=== PATIENT | male | born 1955 | race Caucasian/White ===

== ENCOUNTER 2024-06-25 12:47 | Outpatient (CLI) | payer MEDICARE, SELFPAY ==
--- NOTE | ~2024-06-25 | PE_ITS ---
EXAMINATION: PET_PETPSMAST_PT DATE: 06/25/2024 15:31 INDICATION: Prostate cancer TECHNIQUE: 5.033 mCi of Illucix Ga-[id number]) was administered i.v. Low dose computed vincent graphy (CT) images were acquired from the base of the brain to the base of the brain to the proximal thighs for attenuation correction and anatomic localization. Positron emission tomography (PET) image s were acquired in the same distribution beginning 73 minutes after injection. Images including fused PET/CT images were reconstructed in axial, coronal, and sagittal planes. Automated exposure control technique was employed. The dose-length product was 845.10mGy-cm. COMPARISON: None FINDINGS: Head/neck: Typical pattern of symmetric physiologic increased activity in the lacrimal, parotid and submandibula r glands as well as along the mucosa of the nasal and oral cavities, pharynx and hypopharynx. No path ologically enlarged cervical lymphadenopathy or suspicious foci of increased uptake in the visualized head or neck. Chest: Groundglass opacity consistent with mild dependent atelectasis in the right lower lobe. More linear o pacities with associated cavitary lung disease in the dependent left lower lobe which could represent atelectasis with emphysema and/or usual interstitial pneumonia (UIP) pattern chronic interstitial girma ng disease with associated honeycombing. No suspicious pulmonary nodules or pleural effusion. Heart s ize normal. Atherosclerotic coronary artery calcification is. No pericardial effusion. Thoracic aorta is normal in caliber. No pathologically enlarged or PSMA avid thoracic lymphadenopathy. Abdomen/pelvis/proximal thighs: Physiologic renal accumulation and excretion of activity in the kidneys, bladder and along portions o f ureters. Prostatomegaly measuring 4.7 x 4.2 cm. Nodular region of intense activity at the right pos terior aspect of the prostate with maximal SUV of 21.7 consistent with primary prostate cancer. Genesis l degree and slightly heterogenous pattern of increased uptake throughout the liver and spleen withou t radiologic correlate or dominant PSMA avid lesion. The gallbladder, pancreas and bilateral adrenal glands are normal. Moderate uptake scattered throughout the bowels with typical duodenal and proximal jejunal predominance and without radiologic correlate, also likely physiologic. No other abnormal fo ci of increased uptake or pathologically enlarged lymphadenopathy in the abdomen, pelvis or proximal thighs. Ectatic infrarenal abdominal aorta measuring up to 3.1 cm maximal diameter. Infrarenal IVC fi lter. Musculoskeletal: Moderate to severe thoracolumbar spondylosis. No suspicious lytic, blastic or PSMA avid lesions. IMPRESSION: 1. Nodular focus of prominent increased PSMA neck activity at the right posterior aspect of the enlar ged prostate consistent with primary prostate cancer. No evident metastatic disease. Reviewed, dictated and finalized at location A. IMPRESSION: 1. Nodular focus of prominent increased PSMA neck activity at the right posteri or aspect of the enlarged prostate consistent with primary prostate cancer. No evident metastatic disease.
--- OUTSIDE RECORDS SUMMARY | 2024-06-25 13:11 | XMS_ITS | Referral Summary ---
Author Organization [facility] [address] Address [address] [place] [address] Phone Care Team Providers Care Epic Ambulatory Specialists Name Role Phone Michelle Bonds MD Primary Care Provider [phone] Fer Ovalle Unavailable Unavail able Phillip Lima MD Unavailable [phone] Fer Hawk OD Unavailable [phone] Justin Brennan MD Unavailable [phone] Allergies No known active allergies Medications cholecalciferol (VITAMIN D-3) 1,000 unit tablet take 1 by Oral route every day 90 3 2 Active aspirin 81 mg chewable tabletIndications: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 (HCC) Take 1 tablet (81 mg total) by mouth daily 90 tablet 3 2 Active atorvastatin (LIPITOR) 80 mg tabletIndications:M ultiple-type hyperlipidemia TAKE ONE TABLET BY MOUTH DAILY 90 tablet 2 Active lisinopriL (PRINIVIL,ZESTRIL) 20 mg tabletIndications:B enign hypertension TAKE ONE TABLET BY MOUTH EACH DAY 90 tablet 2 Active Active Problems Problem Noted Date Diagnosed Date 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 Recheck [address] lung cancer screening [facility] On 05/08/2021 CT stable, recheck 1 year Fatigue 10/05/2020 Seborrhea 05/03/2020 Tobacco use 09/12/2016 Benign hypertension 05/11/2015 Overview (07/13/2016): Hypertension, benign Multiple-type hyperlipidemia 05/11/2015 Overview (07/13/2016): Mixed hyperlipidemia Resolved Problems Problem Noted Date Diagnosed Date Resolved Date Obesity (BMI 30-39.9) 03/17/20172017 Prediabetes 09/12/2016 09/23/2017 History of deep venous thrombosis 05/11/2015 03/17/2017 Overview (07/13/2016): History of DVT (deep vein thrombosis) Adiposity 05/11/2015 09/12/2016 Overview (07/13/2016): Obesity (BMI 30.0-34.9) Crohn's disease of colon 08/22/201301/2017 Overview (07/12/2016): Crohn's colitis Male erectile disorder 08/22/201309/12 Overview (07/12/2016): ED (erectile dysfunction) Urethral stricture 08/22/2013 7 Overview (07/12/2016): Urethral stricture, other cause Diabetes mellitus 08/22/2013 09/12/2016 Overview (07/13/2016): Diabetes History of pulmonary embolism 08/22/2013 03/17/2017 Overview (07/13/2016): History of pulmonary embolism Immunizations Immunization Administration Dates Next Due Flucelvax Influenza Quad 01/20/2019 Influenza, Quadrivalent, Spl it, Intramuscular 02/21/2021,01/22/2018 Influenza, Quadrivalent, Spl it, Preservative Free, Intramuscular 01/21/2018,01/11/2017 Influenza, Unspecified 12/31/2019 Moderna SARS-CoV-2 Monovalen t Vaccination (12+ YRS) 04/21/2021,06/17/2020,05/09/2020 Pneumococcal Conjugate PCV 13 10/21/2014 Tdap 05/09/2021,02/05/2012 ZOSTER LIVE 10/27/2014 Social History Tobacco Use Types Packs/Day Years Used Date Smoking Tobacco: Every Day Cigarettes 0.5 30 Smokeless Tobacco: Never Tobacco Cessation:Ready to Q uit: No Alcohol Use Standard Drinks/Week Comments Yes 4 (1 standard drink = 0.6 oz pur e alcohol) Everyday PHQ-2 Answer Date Recorded PHQ-2 Total Score (If total score is 3 or more points, staff should administer the PHQ-9) 0 05/09/2021 Sex and Gender Information Value Date Recorded Sex Assigned at Not on file Legal Sex Male 1:08 PM OPERATIONAL RISK ANALYST Gender Identity Not on file Sexual Orientation Not on file 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 Not on file 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 [employer] Not on file Not on file Not on conner e Last Filed Vital Signs Vital Sign Reading Time Taken Comments Blood Pressure 140/66 05/09/2021 8:43 AM OPERATIONAL RISK ANALYST Pulse 88 05/09/2021 8:43 AM OPERATIONAL RISK ANALYST Temperature 36.9 C (98.4 F) 05/09/2021 8:43 AM OPERATIONAL RISK ANALYST Respiratory Rate 12 05/09/2021 8:43 AM OPERATIONAL RISK ANALYST Oxygen Saturation 97% 05/09/2021 8:43 AM OPERATIONAL RISK ANALYST Inhaled Oxygen Concentration - - Weight 72.6 kg (160 lb) 05/09/2021 8:43 AM OPERATIONAL RISK ANALYST Height 175.3 cm (5' 9 ) 05/09/2021 8:43 AM OPERATIONAL RISK ANALYST Body Mass Index 23.63 05/09/2021 8:43 AM OPERATIONAL RISK ANALYST Plan of Treatment Not on file Procedures Procedure Name Priority Date/Time Associated Diagnosis Comments PSA SCREEN Routine 04/04/2018 7:35 AM OPERATIONAL RISK ANALYST Annual physical exam HEPATITIS C ANTIBODY Routine 02/26/2017 7:43 AM OPERATIONAL RISK ANALYST Encounter for general adult medical examination without abnormal findings COLONOSCOPY 11/23/2014 12:00 AM CDT from Last 3 Months or Most Recently Relevant to Health Maintenance Results * PSA screen (04/04/2018 7:35 AM OPERATIONAL RISK ANALYST) PSA 3.3 < OR = 4.0 ng/mL [facility] [place] Comment: The total PSA value from this assay system is standardized against the WHO standard. The test result will be approximately 20% lower when compared to the equimolar-standardized total PSA ([place]). Comparison of serial PSA results should be interpreted with this fact in mind. This test was performed using the Siemens chemiluminescent method. Values obtained from different assay methods cannot be used interchangeably. PSA levels, regardless of value, should not be interpreted as absolute evidence of the presence or absence of disease. Blood specimen (specimen) 04/04/2018 7:35 AM OPERATIONAL RISK ANALYST 04/04/2018 7:35 AM OPERATIONAL RISK ANALYST Narrative Resulting Agency Comment Performing Organization Information: Site ID: [id number] Name: [facility] Address: [address] [place] [address] Director: Honorio Cardona D.O., MPH Michelle Bonds MD LAB BLOOD ORDERABLES Final Result [facility] [place] * Hepatitis C antibody (02/26/2017 7:43 AM OPERATIONAL RISK ANALYST) Hep C Ab NON-REACTI VE NON-REACTI VE [facility] [place] SIGNAL TO CUT-OFF 0.01 <1.00 [facility] [place] Blood specimen (specimen) 02/26/2017 7:43 AM OPERATIONAL RISK ANALYST 02/26/2017 7:44 AM OPERATIONAL RISK ANALYST Narrative [facility] - 02/27/2017 9:31 AM OPERATIONAL RISK ANALYST FASTING:YES FASTING: YES Resulting Agency Comment Performing Organization Information: Site ID: [id number] Name: [facility] Address: [address] [place] [address] Director: Honorio Cardona D.O., MPH us Michelle Bonds MD LAB MICROBIOLOGY - GENERAL ORDERABLES Final Result [facility] [place] * COLONOSCOPY (11/23/2014 12:00 AM CDT) Anatomical Region Laterality Modality Other Narrative 11/23/2014 12:00 AM CDT Ordered by an unspecified provider. Procedure Note Provider, MD Tre - 11/23/2014 12:00 AM CDT PROCEDURE REPORT Patient: GIOVANA ALCALA Account: [id number] Room No: : 1955 Patient Type: SDS Attend.: eFr Ovalle M.D. Admit Date: 11/23/2014 Dict.: Fer Ovalle M.D. Disch. Date: 11/23/2014 NAME OF PROCEDURE: COLONOSCOPY DATE OF PROCEDURE: 11/23/2014 REFERRED BY: Michelle Bonds M.D. PREVIOUS PROCEDURE: Colonoscopy with evidence of Crohn's colitis. X-RAYS: None. HISTORY AND PHYSICAL EXAM: The patient is a 59-year-old white male whoreturns now for screening colonoscopy. He notes no specific complaints. He hasno abdominal pain and no diarrhea. Physical exam today is that of a well-developed, well-nourished white male in no acute distress. He is anicteric. His lungs are clear. His heart is regular. Abdomen is softand supple without point tenderness or peritoneal signs. There are noobstructive sounds and no succussion splash. PRE-PROCEDURE DIAGNOSIS: 1. Screening colonoscopy in a 59-year-old male. 2. History of Crohn's colitis diagnosed in the past. ENDOSCOPIST: Fer Ovalle M.D. INSTRUMENT USED: ElectraTherm video endoscope. MEDICATIONS: Per Anesthesia. FINDINGS: The colonoscope was introduced and passed to the cecum. Thepatient tolerated the procedure well. There were no complications. On withdrawalof the colonoscope the mucosa appeared normal with normal vascular pattern. Therewere no colitis changes noted in the cecum or right colon. The ileocecal valvewas identified but not entered on this occasion. The remainder of the cecum,right, transverse, and left colon was normal. The rectosigmoid was normal. Onceagain there was no evidence of active colitis. The remainder of the left, rectosigmoid, and rectum was normal. Retroflexed view of the internal analarea showed moderate internal hemorrhoidal tissue. Perianal exam showed noperianal disease and no rectal masses. COMPLICATIONS: None. POST-PROCEDURE DIAGNOSIS: 1. Normal screening colonoscopy to the cecum, with a withdrawal time of7 minutes and 9 seconds. Preparation was excellent. 2. History of Crohn's colitis without evidence of any active colitis or mucosal changes. 3. Occasional bright red blood per rectum contributing to hemorrhoids inthe past and consistent with the same. POST-PROCEDURE ORDERS: 1. Post-sedation instructions. 2. High-fiber diet. 3. Small bowel series. 4. CBC, differential, sedimentation rate, and liver profile. 5. Follow-up with Dr. Bonds. 6. Return to see me in six months at which time we will follow up forhis history and consider further workup, therapy, or changes as may beneeded. Fer Ovalle M.D. RICHI/ms TD: 11/24/2014 14:46 CC: Michelle Bonds M.D. Electronically Authenticated by: Fer Ovalle MD On 11/30/2014 10:48 AM CDT us Historical Provider ENDOSCOPY PROCEDURES Meryl l Result from Last 3 Months or Most Recently Relevant to Health Maintenance Insurance CHOICE [place]PO [place] [facility] Advance Directives For more information, please contact: [phone] Documents on File Type Date Recorded Patient Voicer Expl anation ADVANCE DIRECTIVE 05/03/2020 POWER OF A TTORNEY-MEDICAL Care Teams Epic Ambulatory Specialists Relationship Specialty Start Date End Date Michelle Bonds MD PCP - General 07/12/16 Fer Ovalle Gastroenterology 03/18/17 Phillip Lima MD Referring Physician Ophthalmology 09/23/17 Fer Hawk OD Optometry 09/23/17 Justin Brennan MD [address] [place] [address] [address] [place] [address] Referring Physician Urology 03/26/24
--- OUTSIDE RECORDS SUMMARY | 2024-06-25 13:11 | XMS_ITS | Clinical Summary ---
Author Organization [facility] [address] Address [address] [place] [address] Phone Care Team Providers Care Circulator Name Role Phone Michelle Bonds MD Primary Care Provider [phone] Fer Ovalle Unavailable Unavail able Phillip Lima MD Unavailable [phone] Fer Hawk OD Unavailable [phone] Justin Brennan MD Unavailable [phone] Allergies No known active allergies Medications cholecalciferol [...] disease confirmed on CT lung cancer screening [facility] December 2020 Alcohol use 11/16/2020 Nodule of upper lobe of right lung 11/16/2020 Overview (05/19/2021): 7 mm right upper lobe lobulated lung nodule on screening lung cancer chest CT November 16, 2020. Recheck [address] lung cancer screening [facility] On 05/08/2021 CT stable, recheck 1 year [...] 13 10/21/2014 Tdap 05/09/2021,02/05/2012 ZOSTER LIVE 10/27/2014 Surgical History Surgery Date Site/Laterality Comments OTHER SURGICAL HISTORY repair LLE OTHER SURGICAL HISTORY venacava filter placement OTHER SURGICAL HISTORY reattachment nerve right first finger CATARACT EXTRACTION 04/08/2009 - 04/07/2010 Cataract extraction SHOULDER SURGERY Right COLONOSCOPY 11/06/2014 - 12/06/2014 Dr. Ovalle (-) Medical History Medical History Date Comments Crohn's disease of colon (HCC) 08/22/2013 C rohn's colitis History of pulmonary embolism 08/22/2013 Hi story of pulmonary embolism Tobacco use 09/12/2016 Depression Diabetes (HCC) BPH (benign prostatic hyperplasia) mild (urethral stricture) Tears of meniscus and ACL of left knee ED (erectile dysfunction) Family History Medical History Relation Name Comments Stroke Mother Stroke; Relation Name Status Comments Mother Social History Tobacco Use Types Packs/Day Years [...] on file Legal Sex Male 1:08 PM ASSEMBLER MOLDED FRAMES Gender Identity Not on file Sexual Orientation Not on file 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 Not on file 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 [employer] Not on file Not on file Not on conner e Obstetrics History Last Filed Vital Signs Vital Sign Reading Time Taken Comments Blood Pressure 140/66 05/09/2021 8:43 AM ASSEMBLER MOLDED FRAMES Pulse 88 05/09/2021 8:43 AM ASSEMBLER MOLDED FRAMES Temperature 36.9 C (98.4 F) 05/09/2021 8:43 AM ASSEMBLER MOLDED FRAMES Respiratory Rate 12 05/09/2021 8:43 AM ASSEMBLER MOLDED FRAMES Oxygen Saturation 97% 05/09/2021 8:43 AM ASSEMBLER MOLDED FRAMES Inhaled Oxygen Concentration - - Weight 72.6 kg (160 lb) 05/09/2021 8:43 AM ASSEMBLER MOLDED FRAMES Height 175.3 cm (5' 9 ) 05/09/2021 8:43 AM ASSEMBLER MOLDED FRAMES Body Mass Index 23.63 05/09/2021 8:43 AM ASSEMBLER MOLDED FRAMES Plan of Treatment Health Maintenance Due Date Last Done Comments Fall Risk Assessment 1955 Hepatitis B Screening 1974 Pneumococcal vaccine 65+ (2 of 2 - PPSV23) 12/16/2014 10/21/2014 Zoster Vaccine (2 of 3) 12/22/2014 10/27/2014 Prostate Cancer Screening-PSA 04/04/2020 04/04/2018, 07/24/2016 Abdominal Aortic Aneurysm (A AA) Screen 2021 Depression Screening 05/09/2022 05/09/2021, 10/20/19 20 Well Visit 65+ 05/09/2022 05/09/2021, 04/09, 10/01/2018, Additional history exists Covid-19 Vaccine (4 2023-2 5 season) 2023 04/21/2021, 06/17/2020, 05/09/2020 Influenza Vaccine (#1) 2023 , 12/31/2019, 01/20/2019, Additional history exists Colon Cancer Screening-Colonoscopy 11/23/2024 11/23/2014 DTaP/Tdap/Td Vaccine (3 - Td or Tdap) 05/09/2031 05/09/2021, 02/05/2012 Colon Cancer Screening-CT Colonography Discontinued 11/23/2014 Colon Cancer Screening-DNA Stool Discontinued 11/24/19 15 Colon Cancer Screening-FIT Discontinued 11/23/2014 Colon Cancer Screening-Sigmoidoscopy Discontinued 11/23/2014 Hepatitis C Screening Completed 02/26/2017 Procedures Procedure Name Priority Date/Time Associated Diagnosis Comments PSA SCREEN Routine 04/04/2018 7:35 AM ASSEMBLER MOLDED FRAMES Annual physical exam HEPATITIS C ANTIBODY Routine 02/26/2017 7:43 AM ASSEMBLER MOLDED FRAMES Encounter for general adult medical examination without abnormal findings COLONOSCOPY 11/23/2014 12:00 AM CDT from Last 3 Months or Most Recently Relevant to Health Maintenance Results * PSA screen (04/04/2018 7:35 AM ASSEMBLER MOLDED FRAMES) PSA 3.3 < OR = 4.0 ng/mL [facility] [place] Comment: The total PSA value from this assay system is standardized against the WHO standard. The test result will be approximately 20% lower when compared to the equimolar-standardized total PSA (Glenn [place]). Comparison of serial PSA results should be interpreted with this fact in mind. This test was performed using the Siemens chemiluminescent method. Values obtained from different assay methods cannot be used interchangeably. PSA levels, regardless of value, should not be interpreted as absolute evidence of the presence or absence of disease. Blood specimen (specimen) 04/04/2018 7:35 AM ASSEMBLER MOLDED FRAMES 04/04/2018 7:35 AM ASSEMBLER MOLDED FRAMES Narrative Resulting Agency Comment Performing Organization Information: Site ID: [id number] Name: [facility] Address: [address] [place] [address] Director: Honorio Cardona D.O., MPH Michelle Bonds MD LAB BLOOD ORDERABLES Final Result [facility] [place] * Hepatitis C antibody (02/26/2017 7:43 AM ASSEMBLER MOLDED FRAMES) Hep C Ab NON-REACTI VE NON-REACTI VE [facility] [place] SIGNAL TO CUT-OFF 0.01 <1.00 [facility] [place] Blood specimen (specimen) 02/26/2017 7:43 AM ASSEMBLER MOLDED FRAMES 02/26/2017 7:44 AM ASSEMBLER MOLDED FRAMES Narrative [facility] - 02/27/2017 9:31 AM ASSEMBLER MOLDED FRAMES FASTING:YES FASTING: YES Resulting Agency Comment Performing Organization Information: Site ID: [id number] Name: [facility] Address: [address] [place] [address] Director: Honorio Cardona D.O., MPH us Michelle Bonds MD LAB MICROBIOLOGY - GENERAL ORDERABLES Final Result [facility] [place] * COLONOSCOPY (11/23/2014 12:00 AM CDT) Anatomical Region Laterality Modality Other Narrative 11/23/2014 12:00 AM CDT Ordered by an unspecified provider. Procedure Note Provider, MD Tre - 11/23/2014 12:00 AM CDT PROCEDURE REPORT Patient: GIOVANA ALCALA Account: [id number] Room No: : 1955 Patient Type: SDS Attend.: Fer Ovalle M.D. Admit Date: 11/23/2014 Dict.: Fer [...] past. ENDOSCOPIST: Fer Ovalle M.D. INSTRUMENT USED: Overtone video endoscope. MEDICATIONS: Per Anesthesia. FINDINGS: The [...] Health Maintenance Insurance [place] [facility] Advance Directives For more information, please contact: [phone] Documents on File Type Date Recorded Patient Adolescent Psychiatrist Expl anation ADVANCE DIRECTIVE 05/03/2020 POWER OF A TTORNEY-MEDICAL Care Teams Circulator Relationship Specialty Start Date End Date Michelle Bonds MD PCP - General 07/12/16 Fer Ovalle Gastroenterology 03/18/17 Phillip Lima MD Referring Physician Ophthalmology 09/23/17 Fer Hawk OD Optometry 09/23/17 Justin Brennan MD [address] [place] [address] [address] [place] [address] Referring Physician Urology 03/26/24
--- OUTSIDE RECORDS SUMMARY | 2024-06-25 13:11 | XMS_ITS | Encounter Summary ---
Author Organization [facility] Address [address] [place] [address] Phone Care Team Providers Care Pens And Pencils Dipper Name Role Phone Michelle Bonds MD Primary Care Provider [phone] Fer Ovalle Unavailable Unavail able Phillip Lima MD Unavailable [phone] Fer Hawk OD Unavailable [phone] Justin Brennan MD Unavailable [phone] Encounter Details Date Type Department Care Team (Late st Contact Info) Description 09/25/2016 Orders Only [facility] [address] [place] [address] Penny Cuellar, MEDICAL EXAMINER [address] [facility] [address] [address] Social History Tobacco Use Types Packs/Day Years Used Date Smoking Tobacco: Every Day Cigarettes 0.5 20 Alcohol Use Standard Drinks/Week Comments Yes 4 (1 standard drink = 0.6 oz pur e alcohol) Everyday Sex and Gender Information Value Date Recorded Sex Assigned at Not on file Legal Sex Male 1:08 PM 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 Gender Identity Not on file Sexual Orientation Not on file documented as of this encounter Ordered Prescriptions Prescription Sig Dispense Quantity Refills Last Filled Start Date End Date atorvastatin (LIPITOR) 80 mg tablet Take 1/2 tab once a day 30 tablet 2 09/25/2016 2016 documented in this encounter Plan of Treatment Not on file documented as of this encounter Visit Diagnoses Not on filedocumented in this encounter Discontinued Medications Medication Sig Discontinue Reason Start Date End Da te atorvastatin (LIPITOR) 80 mg tablet TAKE 1/2 TABLET (40MG) BY MOUTH IN THE EVENING Reorder 09/21/2016 09/25/2016 documented as of this encounter Care Teams Pens And Pencils Dipper Relationship Specialty Start Date End Date Michelle Bonds MD PCP - General 07/12/16 Fer Ovalle Gastroenterology 03/18/17 Phillip Lima MD Referring Physician Ophthalmology 09/23/17 Fer Hawk, CARLIN Optometry 09/23/17 Justin Brennan MD [address] [facility] [address] [place] [address] Referring Physician Urology 03/26/24 documented as of this encounter
--- OUTSIDE RECORDS SUMMARY | 2024-06-25 13:11 | XMS_ITS | Clinical Summary ---
Author Organization [facility] Address [address] [place] [address] Phone Care Team Providers Care Sales Support Consultant Name Role Phone Unavailable Unavailable Unavailable Reason for Visit and Chief Complaint STRESS TEST Plan of Treatment No Plan of Treatment Recorded Assessments Includes: Assessments from this encounter No Assessments Recorded Medical Equipment - Implanted Devices Includes: Current Devices No Medical Equipment Recorded Medications Administered Includes: Administered Medications from this encounter No Administered Medications Recorded Results Includes: Results discussed during this encounter No Results Recorded For Specified Dates History of Present Illness Includes: History of Present Illness from this encounter No History of Present Illness Recorded Social History No Social History Recorded - Smoking Status Unknown Medical History Includes: Medical History addressed during this encounter No Medical History Recorded Family History Includes: Family History addressed during this encounter No Family History Recorded Review of Systems Includes: Review of Systems from this encounter No Review of Systems Recorded Mental Status Includes: Mental Status from this encounter No Mental Status Recorded Functional Status Includes: Functional Status from this encounter No Functional Status Recorded Physical Exam Includes: Physical Exam from this encounter No Physical Exam Recorded Encounters Encounter Provider Location Date Check-In Time Check- Out Time Diagnosis STRESS TEST ZAYDA DE LA CRUZ MD [facility] 1 12:11PM 1:20PM Clinical Notes Includes: Clinical Notes from this encounter No Clinical Notes Recorded
--- OUTSIDE RECORDS SUMMARY | 2024-06-25 13:11 | XMS_ITS | Continuity of Care Document ---
Author Organization [facility] Address [id number] [place] [address] [place] [address] Phone Care Team Providers Care Live Source Operator Name Role Phone Phillip Lima MD Unavailable Unavailable Allergies, Adverse Reactions, Alerts Substance Reaction Status Criticality No Known Allergies Active No Inform ation Medications Medication Instructions Dosage Effective Dates (start - stop) Status Comments Lipitor 40 mg tablet take 1 tablet (40MG ) by oral route every day 40 MG - Active Procedures Procedure Date Eye Exam & Treatment Post-op Follow-up Visit Office/outpatient Visit, Est After Cataract Laser Surgery No Charge Cataract Check No Charge Refraction Post-op Follow-up Visit After Cataract Laser Surgery Post-op Follow-up Visit Post-op Follow-up Visit Remove Cataract, Insert Lens Echo Exam Of Eye-Professional Oct-19-201 1 Office/outpatient Visit, Est Post-op Follow-up Visit Post-op Follow-up Visit Post-op Follow-up Visit Remove Cataract, Insert Lens Office/outpatient Visit, Est Echo Exam Of Eye Fundus Photography W/ Report Jan- Eye Exam, New Patient Advance Directives Directive Yes / No Effective Date File Name No Information Encounters Encounter Description Practice Location Reason(s) For Visit Diagnoses Date Provider Providers Copied on Encounter [facility], [address], [place], [place], [address], [place] tel:[phone] [place] Profession[place] Blurry vision (chief complaint) Pseudophakia of both eyesBorderli ne diabetes Apr- 7-201 6 Wankum Phillip. [address] [facility], [address], [place], [place], [address], [place]. tel:[phone] Referring Provider: Michelle Bonds MD, [address] [place], [address]. tel:[phone] [facility], [address], [place], [place], [address], [place] tel:[phone] [place] dryness (chief complaint) FOLLOW-UP SURGERY NOSHORDEOLUM INTERNUM 0-201 4 [facility]. [address] [facility], [address], [place], [place], [address], [place]. tel:[phone] Referring Provider: Michelle Bonds MD, [address] [place], [address]. tel:[phone] Office/outpa tient Visit, Est [facility], [address], [place], [place], [address], [place] tel:[phone] [place] a comprehensiv e exam (chief complaint) AFTR-CATAR OBSCUR VISION Apr-1 0-201 4 [place] Phillip. [address] [facility], [place], [place], [address], [place]. tel:[phone] Referring Provider: Michelle Bonds MD, [address] [place], [address]. tel:[phone] [facility], [address], [place], [place], [address], [place] tel:[phone] [place] glare (chief complaint) AFTR-CATAR OBSCUR VISIONDiabet es Mellitus Type 2, Uncomplicate d 4 [place] Phillip. [address] [facility], [facility] [address], [place], [place], [address], [place]. tel:[phone] Referring Provider: Michelle Bonds MD, [address] [place], [address]. tel:[phone] [facility] [place], [facility], [address], [place], [place], [address], [place] tel:[phone] [place] Professiona l No Information 2 [facility] Fisher. [address] [facility], [facility] [address], [place], [place], [address], [place]. tel:[phone] Referring Provider: Michelle Bonds MD, [address] [place], [address]. tel:[phone] [facility], [address], [place], [place], [address], [place] tel:[phone] SEC [place] Professiona l No Information 2 [facility] Fisher. [address] [facility], [facility] [place] [place], [address], [place]. tel:[phone] Referring Provider: Michelle Bonds MD, [address] [place], [address]. tel:[phone] [facility], [address], [place], [place], [address], [place] tel:[phone] [place] Professiona l blurry vision (chief complaint) FOLLOW-UP SURGERY NOSAFTR-JULIA R OBSCUR VISION 1 No Information Referring Provider: Michelle Bonds MD, [address] [place], [address]. tel:[phone] [facility], [address], [place], [place], [address], [place] tel:[phone] [place] Profession[place] a comprehensiv e exam (chief complaint) FOLLOW-UP SURGERY NOS Jan- 1 No Information Referring Provider: Michelle Bonds MD, [address] [place], [address]. tel:[phone] [facility], [address] [place] [address] [address], [place], [place], [address], [place] tel:[phone] [facility] No Information Jan- 1 Cristian Brown. [address] [place] [address], [address], [place], [place], [address], [place]. tel:[phone] Referring Provider: Michelle Bonds MD, [address] [place], [address]. tel:[phone] [facility], [address] [place] [address] [address], [place], [place], [address], [place] tel:[phone] SEC Caroline Eddy No Information 1 Cristian Brown. [address] [place] [address], [address], [place], [place], [address], [place]. tel:[phone] Referring Provider: Michelle Bonds MD, [address] [place], [address]. tel:[phone] Office/outpa tient Visit, [facility], [address], [place], [place], [address], [place] tel:[phone] [place] Prof[place] a comprehensiv e exam (chief complaint) SENILE NUCLEAR CATARACTLENS REPLACEMENT NECDiabetes Mellitus Type 2, Uncomplicate d Dec- 1 Cristian Brown. [address] [place] [address], [address], [place], [place], [address], [place]. tel:[phone] Referring Provider: Michelle Bonds MD, [address] [place], [address]. tel:[phone] [facility], [address], [place], [place], [address], [place] tel:[phone] [place] Professiona l No Information 3-201 0 Janie Fisher. [address] [facility], [address] [place], [address], [place]. tel:[phone] Referring Provider: Phillip Sullivan, [address] [facility] [address], [place], [address]. tel:[phone] [facility], [address] [place] [address] [address], [place], [place], [address], [place] tel: SEC [place] Professiona l No Information 2 4-201 0 Janie Fisher. [address] [facility], [address], [place], [place], [address], [place]. tel: [facility], [address], [place], [place], [address], [place] tel: SEC [facility] Professiona l No Information Nov-1 0-201 0 Janie Fisher. [address] [facility], [address], [place], [place], [address], [place]. tel: [facility], [address] [place] [address] [address], [place], [place], [address], [place] tel:[phone] [facility] No Information Nov-0 9-201 0 Cristian Brown. [address] [place] [address], [address], [place], [place], [address], [place]. tel:[phone] Referring Provider: Michelle Bonds MD, [address] [place], [address]. tel:[phone] Office/outpa tient Visit, Est [facility], [address], [place], [place], [address], tel:[phone] SEC [place] Professiona l No Information 2-201 0 Cristian Brown. [address], [address], [place], [place], [address], [place]. tel:[phone] Referring Provider: Michelle Bonds MD, [address] [place], [address]. tel:[phone] [facility], [address], [place], [place], [address], tel:[phone] [place] Profession[place] No Information 0-201 0 Nils Levilpi. [address], [address], [place], [address], [place]. tel:[phone] Referring Provider: Michelle Bonds MD, [address] [place], [address]. tel:[phone] Family History Family Member Type Diagnosis Age At Onset No Information Payers Payer name Insurance type Covered alliance party ID Authorisaaca jason(s) RUST [id number] Social History Type Description Quantity Date Captured Comments Alcohol Use Details No Caffeine Use Details No Tobacco Use Status Smoking Status Current some day smoker Smoking Tobacco Use Details Cigarette: No Details Available Cigarette: No Details Available Sex Male Chief Complaint And Reason For Visit From encounter dated '05/04/2015 09:30'. Blurry vision (chief complaint). Description: The 59 year old male presents for a Complete exam OU.Hx Phaco w/ PCIOL OU, and YAG PC OU. Patient denies any v/a changes at this time OU. Patient wears Rx glasses for distance and near OU. Patient denies any pain or discomfort at this time OU. Patient using AT's PRN OU.Pt states he is borderline Diabetic. Reason For Referral Reason For Referral No Information Plan Of Treatment Date Type Action Status Satya-27-2016 Goal Tobacco cessation counseling completed History Of Present Illness Encounter Date Complaint History Of Prese nt Illness Blurry vision The 59 year old male presents for a Complete exam OU. Hx Phaco w/ PCIOL OU, and YAG PC OU. Patient denies any v/a changes at this time OU. Patient wears Rx glasses for distance and near OU. Patient denies any pain or discomfort at this time OU. Patient using AT's PRN OU.Pt states he is borderline Diabetic. Functional Status Date Functional Assessmen t No Information Instructions Date Instruction Additional Infor luizadesiree Impression/Plan - Jassi rderline Diabetic, no signs of diabetic retinopathy. Will continue to monitor. DM letter sent to Dr Bonds. Return to clinic in 1 year for complete diabetic exam or sooner with any problems. Follow up - Return i n 1 year with Phillip Lima M.D. for Complete Exam. General plan -FOLLOW -UP SURGERY NOS -HORDEOLUM INTERNUM - Good results after having Yag PC OS. Discussed meibomitis and the use of a warm compress and massage for treatment. RTC in 1 year. Educational materials provided:about today's exam. Related to See impression: general plan - RTC in 1 year. Related to See impression: general plan General plan -AFTR-C ATAR OBSCUR VISION - Discussed diagnosis in detail with patient. Discussed risks and benefits of Yag PC and patient understands. Will proceed with laser today. RTC in 1 month for post op to Yag PC OS. Educational materials provided:about today's exam.* Good results after Yag PC OS today. Related to See impression: general plan - RTC in 1 month for post op to Yag PC OS. 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 Educational materials provided to patient. Related to AFTR-CATAR OBSCUR VISION - yag pc os Related to AFTR- CATAR OBSCUR VISION Opacified Capsule, O D - established, worsening - vision affected - will improve with surgerypt complains of glare/blurriness - schedule yag cap 6 weeks Related to Opacified Capsule - 6 Weeks Related to FOLLO W-UP SURGERY NOS FOLLOW-UP SURGERY NO S, OS - established, stable - vision improved - controlled with medsdoing great happy with va - finish course diclofenac/tobradex Related to FOLLOW-UP SURGERY NOS - 6 Weeks Related to Opaci fied Capsule - 2 Weeks Related to FOLLO W-UP SURGERY NOS FOLLOW-UP SURGERY NO S, OS - established, stable - vision affected - controlled with medspod 1 ce iol osdoing well - begin tobradex/diclofenac/ rx given to pt in office Related to FOLLOW-UP SURGERY NOS - sched ce OS Related to Catar act, Nuclear Sclerosis Diabetes Type II, no INTERNAL WHOLESALER - Lettef to Dr. Bonds. Related to Diabetes Type II Cataract, Nuclear Sc lerosis, OS - established, worsening - vision affected - may improve with surgeryPt is a deer poncho- - Cataract(s) accounts for patient's complaints. Discussed all risks, benefits, procedures and recovery. Patient understands changing glasses will not improve vision. Patient desires to have surgery, recommend CE w/IOL OS-Pt wants a spot if someone has to cancel- Related to Cataract, Nuclear Sclerosis Pseudophakia, OD - e stablished, stable - vision affected - will continue to monitor - Discussed diagnosis in detail with patient. No treatment is required at this time. Will continue to observe condition and or symptoms. Related to Pseudophakia Assessments Type Assessment Date assessment Pseudophakia of both eyes assessment Borderline diabetes Patient Care Teams Name Effective Dates (start - stop) Status Members No Information
--- OUTSIDE RECORDS SUMMARY | 2024-06-25 13:11 | XMS_ITS | Clinical Summary ---
Author Organization [facility] Address [address] [place] [address] Phone Care Team Providers Care Meat Boner Name Role Phone Unavailable Unavailable Unavailable Reason [...] from this encounter No Physical Exam Recorded Clinical Notes Includes: Clinical Notes from this encounter No Clinical Notes Recorded
--- OUTSIDE RECORDS SUMMARY | 2024-06-25 13:11 | XMS_ITS | Continuity of Care Document ---
Author Organization [employer] [employer] Address [address] [place] [address] Phone Care Team Providers Care Social Work Administrator Name Role Phone Fox Leigh MD Unavailable Unavailable Allergies, Adverse Reactions, Alerts Substance Reaction Status Criticality trimethoprim Rash Active No Information sulfamethoxazole Rash Active No Informat ion Sulfa (Sulfonamide Antibiotics) Active No Information Medications Medication Instructions Dosage Effective Dates (start - stop) Status Comments tamsulosin 0.4 mg capsule take 1 capsule by oral route every day 1/2 hour following the same meal each day - Active Dosage changed 04/12/23 atorvastatin 80 mg tablet take 1 tablet by oral route every day 80 MG - Active Fill when d ue lisinopril 20 mg tablet take 1 tablet by oral route every day 20 MG - Active Fill when d ue Vitamin B-12 5,000 mcg sublingual tablet - Active Vitamin D3 25 mcg (1,000 unit) capsule - Active Aspirin Low Dose 81 mg tablet,delayed release take 1 tablet by oral route every day 81 MG - Active Procedures Procedure Date OFFICE/OUTPATIENT VISIT, EST OFFICE/OUTPATIENT VISIT, EST OFFICE/OUTPATIENT VISIT, EST OFFICE/OUTPATIENT VISIT, EST Rapid COVID OFFICE/OUTPATIENT VISIT, EST IMMUNIZATION ADMIN FLU VAC NO PRSV 4 JEFFREY 3 YRS+ OFFICE/OUTPATIENT VISIT, EST OFFICE/OUTPATIENT VISIT, EST OFFICE/OUTPATIENT VISIT, EST Ketorolac tromethamine inj THER/PROPH/DIAG INJ, SC/IM OFFICE/OUTPATIENT VISIT, EST Methylprednisolone 40 MG inj THER/PROPH/DIAG INJ, SC/IM OFFICE/OUTPATIENT VISIT, EST OFFICE/OUTPATIENT VISIT, EST OFFICE/OUTPATIENT VISIT, NEW Advance Directives Directive Yes / No Effective Date File Name No Information Encounters Encounter Description Practice Location Reason(s) For Visit Diagnoses Date Provider Providers Copied on Encounter [facility], [address] [place] [address], [facility], tel: [phone] [place] [address] No Information 4 Lu Braxton. [address] [place] [address], [facility], . tel: [phone] OFFICE/OUTPA TIENT VISIT, [facility], [address] [place] [address], [facility], tel: [phone] [facility] BLADDER PROBLEMS (chief complaint) Benign prostatic hyperplasia with lower urinary tract symptomsNocturia Functional urinary incontinenceEsse ntial (primary) hypertensionGout , unspecifiedMixed hyperlipidemia 4 Lu Braxton. [address] [place] [address], [facility], . tel: [phone] [facility], [address] [place] [address], [facility], [place] tel: [phone] [facility] No Information 4 Lu Braxton. [address] [place] [address], [facility], [place]. tel: [phone] OFFICE/OUTPA TIENT VISIT, [facility], [address] [place] [address], [facility], tel: [phone] [facility] NAUESA/PAIN IN CHEST (chief complaint) Chest painNausea 3 Lu Braxton. [address] [place] [address], [facility], [place]. tel: [phone] [facility], [address] [place] [address], [facility], tel: [phone] [facility] No Information 3 Jesus Shital. [address] [place] [address], [facility], . tel: [phone] OFFICE/OUTPA TIENT VISIT, [facility], [address] [place] [address], [facility], [place] tel: [phone] [facility] 6 MONTH FOLLOW UP (chief complaint) Essential (primary) hypertensionBeni gn prostatic hyperplasia with lower urinary tract symptomsLow back pain, unspecifiedEleva shivani prostate specific antigen [PSA]Mixed hyperlipidemia 3 Lu Braxton. [address] [place] [address], [facility], [place]. tel: [phone] OFFICE/OUTPA TIENT VISIT, [facility], [address] [place] [address], [facility], [place] tel: [phone] [facility] HIP PAIN (chief complaint) Pain in left lumbar region of back 3 Jesus Isaacs. [address] [place] [address], [facility], . tel: [phone] [facility], [address] [place] [address], [facility], [place] tel: [phone] [place] COVID TEST (chief complaint) Contact With And (suspected) Exposure To COVID-19 3 Lizett Perez. [address] [place] [address], [facility], [place]. tel: [phone] OFFICE/OUTPA TIENT VISIT, [facility], [address] [place] [address], [facility], [place] tel: [phone] [facility] 6 MONTH F/UP (chief complaint) Essential (primary) hypertensionBeni gn prostatic hyperplasia with lower urinary tract symptomsNocturia Functional urinary incontinenceHype rglycemia, unspecifiedEleva shivani prostate specific antigen [PSA]Anemia, unspecifiedEleva tion of levels of liver transaminase levelsMixed hyperlipidemiaGo ut, unspecified Apr-0 3 Lu Braxton. [address] [place] [address], [facility], [place]. tel: [phone] [facility], [address] [place] [address], [facility], [place] tel: [phone] [facility] FLU VACCINE (chief complaint) No Information Jan- 2 Lu Braxton. [address] [place] [address], [address], [place]. tel: [phone] OFFICE/OUTPA TIENT VISIT, [facility], [address] [place] [address], [facility], [place] tel: [phone] [facility] LAB F/UP (chief complaint)H PI (chief complaint) Essential (primary) hypertensionBeni gn prostatic hyperplasia with lower urinary tract symptomsHypergly cemia, unspecifiedAnemi a, unspecifiedEleva shivani prostate specific antigen [PSA] Sep-2 2 Lu Braxton. [address] [place] [address], [facility], [place]. tel: [phone] [facility], [address] [place] [address], [facility], [place] tel: [phone] [facility] Elevation of levels of liver transaminase levelsAnemia, unspecifiedEleva shivani prostate specific antigen [PSA] Sep- 2 Lu Braxton. [address] [place] [address], [facility], [place]. tel: [phone] OFFICE/OUTPA TIENT VISIT, [facility], [address] [place] [address], [facility], [place] tel: [phone] [facility] EST CARE (chief complaint)H PI (chief complaint) Essential (primary) hypertensionBeni gn prostatic hyperplasia with lower urinary tract symptomsNocturia Gout, unspecifiedHyper glycemia, unspecifiedMixed hyperlipidemia Sep-0 2 Lu Braxton. [address] [place] [address], [facility], [place]. tel: [phone] OFFICE/OUTPA TIENT VISIT, [facility], [address] [place] [address], [facility], tel: [phone] [facility] BITE F/U (chief complaint) Acute pain of left foot 2 Cramer Aubrie. [address] [place] [address], [facility], . tel: [phone] OFFICE/OUTPA TIENT VISIT, [facility], [address] [place] [address], [facility], tel: [phone] [place] antibiotic reaction (chief complaint) Antibiotic reaction, initial encounterCelluli tis, unspecified cellulitis site 2 Lizett Perez. [address] [place] [address], [facility], . tel: [phone] OFFICE/OUTPA TIENT VISIT, [facility], [address] [place] [address], [facility], tel: [phone] [facility] R ANKLE PAIN/SWELLI NG (chief complaint) Cellulitis of right lower extremity 2 Shoaib Alfred. [address] [place] [address], [facility], . tel: [phone] OFFICE/OUTPA TIENT VISIT, [facility], [address] [place] [address], [facility], tel: [phone] [place] left arm pain (chief complaint) Rib injuryFall, initial encounter 2 Lizett Perez. [address] [place] [address], [facility], . tel: [phone] OFFICE/OUTPA TIENT VISIT, [facility], [address] [place] [address], [facility], tel: [phone] [facility] Fatigue (chief complaint) Fatigue, unspecified type 1 Seamus Kerry. [address] [place] [address], [facility], . tel: [phone] Family History Family Member Type Diagnosis Age At Onset Father Problem stroke Father Problem hypercholesterolemia Mother Problem coronary arteriosclerosis Father Problem Cardiovascular disease Immunizations Vaccine Date Status Comments Influenza, quadrivalent, hig h dose, injectable, split virus, preservative free, 0.7 mL dose, Fluzone High-Dose Quad administered Note: [facility] ; Source: Public Agency Influenza injectable quad administered Source: New Immuniza tion Record Payers Payer name Insurance type Covered libertarian ID Authoriza tion(s) No Information Social History Type Description Quantity Date Captured Comments Alcohol Use Details Unknown Caffeine Use Details Unknown Tobacco Use Status Smoking Status No Information Sex Male Chief Complaint And Reason For Visit No Information Reason For Referral Reason For Referral No Information Plan Of Treatment Date Type Action Status Goal Sigmoidoscopy. Due on due Goal Hepatitis C scre ening. Due on due Goal Pneumococcal vac cine. Due on due Goal Influenza vaccine. Due on due Goal Td vaccine. Due on 24 due Goal Colonoscopy. Due on 024 due Goal Zoster vaccine. Due on due Goal Unhealthy drug u se screening. Due on due Goal Abdominal ultras ound. Due on due Goal FOBT. Due on due Goal CT-Colonography. Due on due Goal Depression scree misa. Due on due Goal Tdap. Due on due Goal FIT. Due on due Goal Zoster vaccine ( 1st). Due on due Goal Lipid panel. Due on due Goal FIT-DNA. Due on due Goal Hepatitis C scre ening. Due on due Goal Tdap. Due on due Goal Unhealthy drug u se screening. Due on due Goal Lipid panel. Due on due Goal Pneumococcal vac cine. Due on due Goal FIT-DNA. Due on due Goal Influenza vaccine. Due on due Goal Zoster vaccine ( ). Due on due Goal FOBT. Due on due Goal CT-Colonography. Due on due Goal Abdominal ultras ound. Due on due Goal Zoster vaccine. Due on due Goal FIT. Due on due Goal Depression scree misa. Due on due Goal Td vaccine. Due on due Goal Colonoscopy. Due on due Goal Sigmoidoscopy. Due on due Goal Tobacco cessation counseling completed Goal Hepatitis C scre ening. Due on due Goal FOBT. Due on due Goal Unhealthy drug u se screening. Due on due Goal Lipid panel. Due on due Goal Colonoscopy. Due on due Goal FIT-DNA. Due on due Goal FIT. Due on due Goal Pneumococcal vac cine. Due on due Goal Zoster vaccine. Due on due Goal CT-Colonography. Due on due Goal Zoster vaccine ( ). Due on due Goal Influenza vaccine. Due on Oc due Goal Depression scree misa. Due on due Goal Tdap. Due on due Goal Abdominal ultras ound. Due on due Goal Td vaccine. Due on due Goal Sigmoidoscopy. Due on due Goal Colonoscopy. Due on 023 due Goal Hepatitis C scre ening. Due on due Goal Lipid panel. Due on [address]-Colonography. Due on due Goal Depression scree misa. Due on due Goal Sigmoidoscopy. Due on due Goal Unhealthy drug u se screening. Due on due Goal Influenza vaccine. Due on Oc due Goal Pneumococcal vac cine. Due on due Goal FOBT. Due on due Goal Zoster vaccine ( ). Due on due Goal Abdominal ultras ound. Due on due Goal Zoster vaccine. Due on due Goal FIT-DNA. Due on due Goal Tdap. Due on due Goal FIT. Due on due Goal Td vaccine. Due on due Goal Tobacco cessation counseling completed Goal Pneumococcal vac cine. Due on due Goal Sigmoidoscopy. Due on due Goal FIT-DNA. Due on due Goal CT-Colonography. Due on due Goal Influenza vaccine. Due on due Goal FOBT. Due on due Goal Depression scree misa. Due on due Goal Zoster vaccine ( ). Due on due Goal FIT. Due on due Goal Abdominal ultras ound. Due on due Goal Tdap. Due on due Goal Lipid panel. Due on due Goal Zoster vaccine. Due on due Goal Colonoscopy. Due on due Goal Td vaccine. Due on due Goal Hepatitis C scre ening. Due on due Goal Unhealthy drug u se screening. Due on due Goal Sigmoidoscopy. Due on due Goal Zoster vaccine. Due on due Goal Colonoscopy. Due on [address]-Colonography. Due on due Goal FIT. Due on due Goal Influenza vaccine. Due on due Goal Td vaccine. Due on due Goal Pneumococcal vac cine. Due on due Goal Lipid panel. Due on due Goal Tdap. Due on due Goal Unhealthy drug u se screening. Due on due Goal Depression scree misa. Due on due Goal FIT-DNA. Due on due Goal Zoster vaccine ( ). Due on due Goal Hepatitis C scre ening. Due on due Goal Abdominal ultras ound. Due on due Goal FOBT. Due on due Goal Tobacco cessation counseling completed Goal Tdap. Due on due Goal Zoster vaccine ( ). Due on due Goal Colonoscopy. Due on due Goal Pneumococcal vac cine. Due on due Goal Hepatitis C scre ening. Due on due Goal Influenza vaccine. Due on due Goal Lipid panel. Due on due Goal FOBT. Due on due Goal Depression scree misa. Due on due Goal Unhealthy drug u se screening. Due on due Goal FIT-DNA. Due on due Goal Td vaccine. Due on due Goal CT-Colonography. Due on due Goal Abdominal ultras ound. Due on due Goal Sigmoidoscopy. Due on due Goal FIT. Due on due Goal Zoster vaccine. Due on due Goal FIT-DNA. Due on due Goal Hepatitis C scre ening. Due on due Goal Unhealthy drug u se screening. Due on due Goal Zoster vaccine ( ). Due on due Goal Colonoscopy. Due on 023 due Goal Influenza vaccine. Due on due Goal Sigmoidoscopy. Due on due Goal Lipid panel. Due on 023 due Goal Zoster vaccine. Due on due Goal FOBT. Due on due Goal Pneumococcal vac cine. Due on due Goal CT-Colonography. Due on due Goal FIT. Due on due Goal Depression scree misa. Due on due Goal Td vaccine. Due on due Goal Tdap. Due on due Goal Abdominal ultras ound. Due on due Goal Sigmoidoscopy. Due on due Goal Influenza vaccine. Due on Oc due Goal Depression scree misa. Due on due Goal Tdap. Due on due Goal Td vaccine. Due on due Goal Colonoscopy. Due on due Goal Zoster vaccine. Due on due Goal Abdominal ultras ound. Due on due Goal FOBT. Due on due Goal Pneumococcal vac cine. Due on due Goal Pneumococcal vac cine. Due on due Goal FOBT. Due on due Goal Colonoscopy. Due on due Goal Td vaccine. Due on due Goal Zoster vaccine. Due on due Goal Abdominal ultras ound. Due on due Goal Depression scree misa. Due on due Goal Tdap. Due on due Goal Influenza vaccine. Due on due Goal Sigmoidoscopy. Due on due Goal Abdominal ultras ound. Due on due Goal Zoster vaccine. Due on due Goal Td vaccine. Due on due Goal Sigmoidoscopy. Due on due Goal Depression scree misa. Due on due Goal Tdap. Due on due Goal Influenza vaccine. Due on due Goal Pneumococcal vac cine. Due on due Goal FOBT. Due on due Goal Colonoscopy. Due on due Goal Influenza vaccine. Due on due Goal Pneumococcal vac cine. Due on due Goal Sigmoidoscopy. Due on due Goal Td vaccine. Due on due Goal Tdap. Due on due Goal Depression scree misa. Due on due Goal Colonoscopy. Due on due Goal Zoster vaccine. Due on due Goal Lipid panel. Due on due Goal FOBT. Due on due Goal Abdominal ultras ound. Due on due Goal Depression scree misa. Due on due Goal Tdap. Due on due Goal Sigmoidoscopy. Due on due Goal Influenza vaccine. Due on due Goal Pneumococcal vac cine. Due on due Goal Td vaccine. Due on due Goal Abdominal ultras ound. Due on due Goal FOBT. Due on due Goal Zoster vaccine. Due on due Goal Colonoscopy. Due on due Goal Lipid panel. Due on due Goal Influenza vaccine. Due on due Goal Pneumococcal vac cine. Due on due Goal Tdap. Due on due Goal Td vaccine. Due on due Goal Depression scree misa. Due on due Goal Colonoscopy. Due on due Goal Sigmoidoscopy. Due on due Goal Abdominal ultras ound. Due on due Goal Zoster vaccine. Due on due Goal Lipid panel. Due on due Goal FOBT. Due on due Goal Depression scree misa. Due on due Goal Sigmoidoscopy. Due on due Goal Colonoscopy. Due on due Goal Zoster vaccine. Due on due Goal Abdominal ultras ound. Due on due Goal Lipid panel. Due on due Goal FOBT. Due on due Goal Influenza vaccine. Due on due Goal Td vaccine. Due on due Goal Pneumococcal vac cine. Due on due Goal Tdap. Due on due Goal FOBT. Due on due Goal Tdap. Due on due Goal Zoster vaccine. Due on due Goal Influenza vaccine. Due on due Goal Colonoscopy. Due on due Goal Lipid panel. Due on due Goal Depression scree imsa. Due on due Goal Sigmoidoscopy. Due on due Goal Td vaccine. Due on due Goal Sigmoidoscopy. Due on due Goal Influenza vaccine. Due on due Goal Colonoscopy. Due on due Goal Lipid panel. Due on due Goal FOBT. Due on due Goal Tdap. Due on due Goal Zoster vaccine. Due on due Goal Depression scree misa. Due on due Goal Td vaccine. Due on due Referral Referred To: Juan Ordered: Referrals: Urology. Juan. Evaluate and treat ordered Referral Ordered: X-RAY EXAM OF RIBS/CHEST Unilateral Left ordered Patient Education prednisone 20 mg tablet completed Patient Education Cellulitis: Care Instru ctions completed Patient Education Preventing Outdoor Fall s: Care Instru~ completed Patient Education Fatigue: Care Instructi ons completed Future Order: Lab Order URIC [facility] D ([id number]), Sent on: Sent History Of Present Illness Encounter Date Complaint History Of Prese nt Illness BLADDER PROBLEMS Patient is here today to discuss his urinary issues again. He complains of continued urinary frequency. He urinates 6-10 times per night. He is typically incontinent of urine during the night and has to wear diapers as well as unit using a urine pad on his couch. He does urinate frequently during the day. He is noticed that he can get an erection but when he climax is there is no semen production. I placed an on tamsulosin and last time I saw him he thought that it helped the symptoms but now he says is not helping at all. It sounds like he had a TURP performed about 15 years ago. I explained to him that he needs to be referred to urology and he seems hesitant of this. He was hoping they would just somehow be able to do a urinary procedure at [facility]. I explained to him that urologist did not come to [facility] and only come to larger institutions. 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 He denies any chest pain or shortness of breath. I ration get follow-up lab work to check kidney function, liver function as well as his cholesterol level. Patient refuses to do lab work. I also recommended repeat recheck the PSA since it was elevated being in December. He refused that as well. NAUESA/PAIN IN CHEST Has nausea 2 hours after he takes medication, also chest soreness and upper backPatient states has been having episodes of discomfort in his left chest for about 1 month. They occur at various times. It will often wake him up in the middle of the night and cause him to not be able to get back to sleep. This is often associated with some nausea. He states the discomfort starts in the left side of his chest and radiates across his lower chest and down into his epigastric region. He has not vomited. He has had no bowel or bladder changes of any significance. He does feel like his urination has improved since we increased the tamsulosin 1 month ago. He has had decreased episodes of wetting his bed during the night. He states he sleeps in a recliner though so he does not soil his bed sheets. He has a history of acid reflux in the past but does not take anything for now. He has been on diclofenac for about 6 weeks due to lower back pain. 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 There is no associated symptoms of diaphoresis or pain radiating into his neck or arms. He has had no significant cardiac history but did have a work-up years ago which was negative. Vital signs are stable today. He denies any significant shortness of breath with exertion or with the chest discomfort. The chest discomfort is just described as a dull ache. He denies any heaviness or chest tightness. 6 MONTH FOLLOW UP Patient here f or 6-month follow-up. He saw [facility] on January 02 for the sudden onset of left lower back pain. 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 He denies any significant trauma or injury. He was placed on prednisone taper and some diclofenac. Patient states swelling has decreased and has had some mild improvement. Still has some significant left lower back pain when he tries to work. No radiation down the legs. No fevers or chills.Blood pressure elevated today but probably due to the pain he is having in his back. He does not check his blood pressure at home. Reviewed lab work with him. His CBC was normal. Kidney and liver function were normal. Hemoglobin A1c was normal at 4.7%. Cholesterol looked good with an LDL of 62 and triglycerides of 82. PSA was slightly elevated at 7.71, last check was 6.83. Patient continues to have significant urinary frequency and nocturia. Also has times of urinary incontinence which is chronic for him. He has had several prostate surgeries in the past. I offered sending him back to urology for evaluation and he refused at this time. HIP PAIN Additional infor nickolas: Pain in left hip for 2 weeks no injury. Comments: 67-yea r-old male patient presents today with complaint of left lower back pain for the past 2 weeks. He denies any fall or injury. 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 He states that he does a lot of heavy lifting and he may have injured his back doing this. Patient has tried verl-qej-lsfnkle analgesics without much relief. Patient does not have a history of chronic back pain. He states that he does not want anything to mask the pain, he just wants the problem fixed. I explained to patient that this is likely a strain and rest is the pena to improvement, he should avoid any heavy lifting until his symptoms improve. I will also prescribe him prednisone to help with the inflammation, and hopefully make his recovery quicker. I will also prescribe him diclofenac to take for pain if needed. He will return to the office for possible x-ray and physical therapy if pain persists after treatment. Patient denies any radicular symptoms, or any bowel or bladder dysfunction. He has no other questions or concerns today. COVID TEST Pt presents toda y wanting a COVID test. Pt denies having any symptoms. Pt states he was around someone 15 days ago before they left for [place] who now has COVID. Pt has not been around them. Pt states he wants tested as a precaution. 6 MONTH F/UP Patient here for 6-month follow-up. Overall he is feeling good. No unusual chest pain or shortness of breath. Primary complaint is urinary frequency and nocturia. At night he has to wear an adult diaper because he just cannot get to the bathroom in time and he will leak. During the day he urinates frequently but is able to get to the bathroom in time. No dysuria or hematuria. Sounds like he has had a couple of TURPs in the past. He has never tried tamsulosin. He is due for blood work. Blood pressure looks good today. No other new concerns or complaints. FLU VACCINE PT PRESENTS FOR A FLU VACCINE.PT FEELS WELL TODAY. TEMP 98.4. PT IS NOT ALLERGIC TO EGGS AND HAS NEVER HAD A REACTION TO A FLU SHOT.FLU VACCINE GIVEN IN THE LEFT UPPER ARM IM IN THE SITTING POSITION. NO REACTION NOTED. PT LEFT AMBULATORY. HPI Patient here to review lab work today. We went over his recent lab work which included a fasting blood sugar 155 and hemoglobin A1c of 5.2%. We discussed that ADA diet. He was on diabetic medications in the past but has been off for several years now.Uric acid level was good at 3.1. No recent gout attacks.Sodium was little low at 133 as was his potassium at 3.7.Cholesterol look good with an LDL of 89 and a triglyceride of 79.Hemoglobin was a little low at 12.2. His MCV was 100.9. B12 level was normal at over thousand and his iron level was normal at 69.Patient's initial liver function tests were slightly elevated with an AST of 83 and an ALT of 145. On repeat a couple weeks later they were back down to normal with an AST of 36 and ALT of 39. Patient states he believes the night prior to the first set being drawn he had about 6 beers with a body. He states this is not a typical thing for him and does not drink on a daily basis.PSA was slightly elevated at 6.83. He states has been elevated in the past but he does not remember exactly what it was. He has had some sort of a prostate procedure in the past but he does not believe it was ever a biopsy.Patient has no new concerns or complaints today. LAB F/UP HPI Patient here to get established today. Had been seeing Dr.'s jim Connors in [place] but is just gotten to be too long to drive. No new concerns or complaints today. Reviewed past medical history medication with patient. States he has not had labs done for couple of years and has not seen Dr. Connors for a couple of years due to the pandemic. He does have a family history of coronary artery disease. States he had some high blood sugars in the past was been able to control that with his diet. He has a history of chronic urinary incontinence which he has had since he was young. Unlikely his Parkinson specialist about this and had some procedures performed but nothing was really worked. He has nocturia several times at night and frequency during the day. He wears diapers at night but he does not wet the bed. He denies any unusual chest pain or shortness of breath. He otherwise feels good right now.Patient had colonoscopy approximately 3 years ago. [facility] Pt takes VIT D3 25MCGVIT B-12VIT C 800MG BITE F/U Pt presents with complaints of right foot pain since September 2021. antibiotic reaction (comments) Linda serra is a 66-year old male who presents to the clinic today with complaint of rash. He was seen in this clinic on 10/26/2021 for cellulitis of his right foot. He was prescribed Bactrim. He states that the rash started after taking Bactrim. He denies any swelling, difficulty breathing. He notes some improvement in cellulitis but is not completely resolved. He has not taken any OTC medications for symptoms. He offers no other concerns or complaints at this time. Bin-31-2022 antibiotic reaction Pt presents today with complaints of pink hands, red rash and blood splotches on his arms. Pt believes this is caused from the Bactrim he was given on 10/26/2021 for an infection in his foot. Pt states the rash is itchy. R ANKLE PAIN/SWELLING Pt has swe lling to his right ankle x 1 week. Pt states he is unsure if he injured or how he injured it. left arm pain Onset: 1 week ag o. Location: left. Additional information: PT PRESENTS WITH LEFT ARM PAIN AND LEFT RIB PAIN AFTER A FALL ONE WEEK AGO. left arm pain (comments) Giovana thao s a 65-year old male who presents to the clinic today with complaint of left rib injury after a fall. 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 He states that he landed on his left side with his left elbow in his ribs. He is complaining of left rib pain, increased with deep breathing. He states that he is not concerned with his left arm since he has been using it without difficulty over the past week. He offers no other concerns or complaints at this time. Fatigue This is an initi al visit. The symptoms began 9 months ago. The symptoms have remained unchanged. The patient presents with fatigue. The patient denies any aggravating factors. Interventions the patient has tried have not provided any relief. Additional information: PT STATES THAT HE IS TIRED ALL THE TIME AND STATES THAT HE STARTED FEELING THIS WAY AFTER HE GOT HIS FLU VACCINE IN JANUARY. STATES THAT HE THINKS IT WORSENED AFTER HIS FIRST COVID VACCINE AND GOT EVEN WORSE AFTER HE GOT THE SECOND DOSE OF COVID VACCINE. HAD LYME DISEASE 10-15 YEARS AGO. Fatigue (comments) He states he told his PCP about this already but was not happy with her response. She told him it was due to age. He denies CP or SOB. He denies fever. Denies weight loss. Denies h/o irregular heart rhythm. He has not been tested for sleep apnea. He states he can just lay down and go to sleep but he is not napping. 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 He is able to do his chores but feels very tired by the end of the day. He reports having a stress test about 4 years ago that as far as he knows was normal. He has had an ECHO in the last year. He denies diabetes but has a history of borderline diabetes. Unsure if his thyroid has been tested in the past. His Atorvastatin was increased [doubled] about 6 months ago to 80mg and his blood pressure medicine was also doubled. He has had lab work in the last year. Functional Status Date Functional Assessmen t No Information Instructions Date Instruction Additional Infor nickolas Refer to urology in [facility] refuses lab work Related to Benign prostatic hyperplasia with lower urinary tract symptoms Stop diclofenac and do not take any [id number] NSAIDsMay use Tylenol for painWritten order for chest x-ray and twelve-lead EKG given to patient which he will go immediately over to [facility] to get done.Patient advised to start [id number]-jbh-[id number] omeprazole once a day for 3 to 4 weeks.If symptoms change, persist or worsen we will possibly send to cardiology for cardiac work-up. We will also consider CT scan of the chest and abdomen. Since he just had blood work done around 6 weeks ago, which was all normal, we will not repeat at this time. Related to Chest pain Continue relative re st of back. 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 Finish prednisone taper. If no improvement in 2 to 3 weeks we will set up physical therapy at [facility].Increase tamsulosin 2.8 mg dailyPatient refused referral to urologyMonitor blood pressure at homeFollow-up 6 monthsLabs in 6 months: CBC, CMP, lipid panel Related to Essential (primary) hypertension Fill new prescriptio ns and take as directed. Do not take other NSAIDs while taking Diclofenac. Use rest, heat and/or ice as much as possible for discomfort. May Tylenol as needed. Observe for worsening signs and symptoms and seek care as needed. Related to Pain in left lumbar region of back Continue current med icationsLab order sent to [place] for: CBC, CMP, lipids, hemoglobin A1c, diagnostic PSAAdd tamsulosinFollow-up 6 months, sooner if needed Related to Essential (primary) hypertension Continue current med icationsLabs in 6 months: CBC, CMP, Lipids, diagnostic PSA, HgbA1c, MgF/U 6 months Related to Essential (primary) hypertension Continue current med icationsLabs at [facility]: CBC, CMP, Lipids, HgbA1c, Uric acid, diagnostic PSAF/U 12 months Related to Essential (primary) hypertension Start Augmentin. Jaret e with food or milk to help alleviate GI effects.Elevate extremity.Follow up with PCP or return to clinic if no improvement. Related to Cellulitis, unspecified cellulitis site Stop Bactrim.Start C laritin or Zyrtec once daily and famotidine 20 mg twice daily.DepoMedrol 40 mg IM given in clinic.Follow up with PCP or return to clinic if no improvement.Discussed red flags to be aware of and when to seek emergency treatment. Patient voiced understanding. Related to Antibiotic reaction, initial encounter Keep right foot elev ated is much as possible take antibiotics as prescribed Related to Cellulitis of right lower extremity Will call patient [facility] x-ray results.Rest.Splint, deep breathe and cough.Tylenol.Follow up with PCP or return to clinic if no improvement, symptoms worsen. Related to Rib injury talk candidly with y our PCP about your symptoms Related to Fatigue, unspecified type Assessments Type Assessment Date No Information Patient Care Teams Name Effective Dates (start - stop) Status Members No Information
--- OUTSIDE RECORDS SUMMARY | 2024-06-25 13:11 | XMS_ITS ---
Care Plan - [facility] Created on: June 25, 2024 GIOVANA NUR : 1955 Sex: Male Author Organization [facility] Address [address] [place] [address] Phone Care Team Providers Care Telemarketing Agent Name Role Phone Unavailable Unavailable Unavailable
--- OUTSIDE RECORDS SUMMARY | 2024-06-25 13:11 | XMS_ITS ---
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 Role Phone Unavailable Unavailable Unavailable Plan of Treatment No Plan of Treatment Recorded Assessments Includes: Assessments for all patient encounters No Assessments Recorded Medical Equipment - Implanted Devices Includes: Current and historical Devices No Medical Equipment Recorded Medications Administered Includes: Administered Medications in patient's chart No Administered Medications Recorded Results Includes: Results from 06/26/2023 through 06/25/2024 No Results Recorded For Specified Dates History of Present Illness History of Present Illness not supported for this document type No History of Present Illness Recorded Social History No Social History Recorded - Smoking Status Unknown Medical History Includes: Medical History in patient's chart No Medical History Recorded Family History Includes: Family History in patient's chart No Family History Recorded Review of Systems Review of Systems not supported for this document type No Review of Systems Recorded Mental Status No Mental Status Recorded Functional Status No Functional Status Recorded Physical Exam Physical Exam not supported for this document type No Physical Exam Recorded Clinical Notes Includes: Signed Clinical Notes starting from 04/27/2022 No Clinical Notes Recorded
== END 2024-06-25 12:48 | disposition home or self-care (01) ==
PROVIDERS: Visit Provider Urology
DX: C61 Malignant neoplasm of prostate (principal)
CPT/HCPCS: 78815; A9596